=== PATIENT | male | born 1960 | race Caucasian/White ===

== ENCOUNTER 2018-05-28 11:44 | Emergency (ER) | payer OTHER ==
[2018-05-28] MEDS ORDERED: cefTRIAXone 1 GM in Sodium Chloride 0.9% 50 ML IV STA (13:33)
[2018-05-28] MEDS ORDERED: methylPREDNISolone Sodium Succinate 125 MG/2 ML SDV IVPUSH ONE (13:35)
[2018-05-28] MEDS ORDERED: Albuterol/Ipratropium 3.0-0.5 MG/3 ML Neb Soln NEB ONE (13:35)
--- NOTE | 2018-05-28 13:40 | EDM.PDOC ---
ED HPI GENERAL MEDICAL PROBLEM - General Chief Complaint: Respiratory Problem Stated Complaint: PNEUMONIA?? Time Seen by Provider: 05/28/18 13:07 Source of Information: Reports: Patient, Family, RN Notes Reviewed History Limitations: Reports: No Limitations - History of Present Illness INITIAL COMMENTS - FREE TEXT/NARRATIVE: 58-year-old gentleman presents to the emergency department today complaint of shortness of breath, he is known history of COPD with tobacco dependence, states over the last 24 hours he has gotten progressively more short of breath and is wheezing more gets short of breath with exertion. Does have a history of recurrent pneumonia is traveling from [place] - Related Data Allergies Allergy/AdvReac Type Severity Reaction Status Date / Time oxycodone Allergy Hives Verified 05/28/18 13:07 propoxyphene [From Darvon] Allergy Hives Verified 05/28/18 13:07 Home Meds: Home Meds Aspirin 1 tab PO DAILY 05/28/18 [History] Ipratropium/Albuterol Sulfate [Combivent Respimat 20-100 Mcg] 1 puff INH DAILY 05/28/18 [History] Loratadine 1 tab PO DAILY 05/28/18 [History] Naproxen 1 tab PO BID PRN 05/28/18 [History] Omeprazole 1 tab PO DAILY 05/28/18 [History] metFORMIN [Glucophage] 1,000 mg PO BID 05/28/18 [History] Past Medical History Respiratory History: Reports: Asthma, COPD, Pneumonia, Recurrent Musculoskeletal History: Reports: Fracture Endocrine/Metabolic History: Reports: Diabetes, Type II - Infectious Disease History Infectious Disease History: Reports: Chicken Pox - Past Surgical History HEENT Surgical History: Reports: Tonsillectomy Respiratory Surgical History: Reports: None GI Surgical History: Reports: Hernia, Inguinal Social & Family History - Tobacco Use Smoking Status *Q: Current Every Day Smoker Years of Tobacco use: 40 Packs/Tins Daily: 2 Used Tobacco, but Quit: No Second Hand Smoke Exposure: Yes - Caffeine Use Caffeine Use: Reports: Coffee, Soda - Recreational Drug Use Recreational Drug Use: No ED ROS GENERAL - Review of Systems Review Of Systems: See Below Constitutional: Denies: Fever, Chills HEENT: Reports: No Symptoms Respiratory: Reports: Shortness of Breath, Wheezing, Cough, Sputum Cardiovascular: Reports: Dyspnea on Exertion. Denies: Chest Pain GI/Abdominal: Reports: No Symptoms : Reports: No Symptoms Musculoskeletal: Reports: No Symptoms Skin: Reports: No Symptoms Neurological: Reports: No Symptoms ED EXAM, GENERAL - Physical Exam Exam: See Below Free Text/Narrative:: General: Male, visibly short of breath tripoding able speak in 2 word sentences , alert and oriented x3 HEENT: head is atraumatic normocephalic, eyes pupils equal round reactive to light, sclera clear no conjunctivitis appreciated. Ears tympanic membranes clear and hill landmarks and light reflex are present bilaterally canals are clear. Nose no septal deviation, nares are clear, no blood present. Mouth mucosa is moist and pink no erythema or exudate noted in soft palate, tongue is midline uvula is midline, dentition is intact. Neck: Supple no thyromegaly no tracheal deviation. Nodes: Cervical nodes subclavicular nodes nontender no palpable lymphadenopathy noted. Lungs: Distant breath sounds with expiratory wheeze throughout all lung balderas CV: Regular rate and rhythm S1 and S2 appreciated no murmurs rubs or gallops noted. Abdomen: Soft, obese, nontender, no palpable masses or organomegaly appreciated , no distention no guarding bowel sounds are present, . Neuro: Cranial nerves II through XII grossly intact Skin: Warm and dry, intact Extremities: No lower extremity edema appreciated, Course - Vital Signs Last Recorded V/S: Last Vital Signs Temp 97.3 F 05/28/18 13:33 Pulse 90 05/28/18 13:33 Resp 20 05/28/18 13:33 BP 140/98 H 05/28/18 13:33 Pulse Ox 96 05/28/18 13:33 - Orders/Labs/Meds Orders: Active Orders 24 hr Category Date Time Status EKG Documentation Completion [RC] ASDIRECTED Care 05/28/18 13:38 Active RT Aerosol Therapy [RC] ASDIRECTED Care 05/28/18 13:35 Active Vital Signs [RC] Q1H Care 05/28/18 13:33 Active Chest 2V [CR] Urgent Exams 05/28/18 13:33 Taken CULTURE BLOOD [BC] Urgent Lab 05/28/18 13:33 Ordered CULTURE BLOOD [BC] Urgent Lab 05/28/18 13:45 Received CULTURE RESPIRATORY + SMEAR [RM] Stat Lab 05/28/18 13:36 Ordered Azithromycin [Zithromax] 500 mg Med 05/28/18 14:15 Active Sodium Chloride 0.9% [Normal Saline] 250 ml IV Q24H Sodium Chloride 0.9% [Normal Saline] 1,000 ml Med 05/28/18 13:45 Active IV ASDIRECTED Blood Culture x2 Reflex Set [OM.PC] Urgent Oth 05/28/18 13:33 Ordered EKG 12 Lead [EK] Stat Ther 05/28/18 13:38 Ordered Medication Orders Sodium Chloride (Normal Saline) 1,000 mls @ 999 mls/hr IV ASDIRECTED MARCE Last Admin: 05/28/18 14:21 Dose: 999 mls/hr Azithromycin 500 mg/ Sodium (Chloride) 250 mls @ 250 mls/hr IV Q24H MARCE Last Admin: 05/28/18 14:12 Dose: 250 mls/hr Labs: Laboratory Tests 05/28/18 05/28/18 05/28/18 Range/Units 13:50 13:50 13:50 WBC 9.1 (4.5-11.0) K/uL RBC 5.56 (4.30-5.90) M/uL Hgb 15.6 H (12.0-15.0) g/dL Hct 48.1 (40.0-54.0) % MCV 87 (80-98) fL MCH 28 (27-31) pg MCHC 32 (32-36) % Plt Count 206 (150-400) K/uL Neut % (Auto) 78 H (36-66) % Lymph % (Auto) 11 L (24-44) % [place] % (Auto) 7 H (2-6) % Eos % (Auto) 5 H (2-4) % Baso % (Auto) 0 (0-1) % Sodium 138 L (140-148) mmol/L Potassium 4.7 (3.6-5.2) mmol/L Chloride 103 (100-108) mmol/L Carbon Dioxide 27 (21-32) mmol/L Anion Gap 12.7 (5.0-14.0) mmol/L BUN 10 (7-18) mg/dL Creatinine 0.9 (0.8-1.3) mg/dL Est Cr Clr Drug Dosing 98.64 mL/min Estimated GFR (MDRD) > 60 (>60) Glucose 116 H (74-106) mg/dL Lactic Acid 1.3 (0.4-2.0) mmol/L Calcium 9.0 (8.5-10.1) mg/dL Total Bilirubin 0.6 (0.2-1.0) mg/dL AST 19 (15-37) U/L ALT 28 (12-78) U/L Alkaline Phosphatase 89 (46-116) U/L Troponin I (0.000-0.056) ng/mL C-Reactive Protein 1.21 H (0.0-0.3) mg/dL NT-Pro-B Natriuret Pep (5-125) pg/mL Total Protein 6.7 (6.4-8.2) g/dL Albumin 3.4 (3.4-5.0) g/dL Globulin 3.3 (2.3-3.5) g/dL Albumin/Globulin Ratio 1.0 L (1.2-2.2) 05/28/18 05/28/18 Range/Units 13:50 13:50 WBC (4.5-11.0) K/uL RBC (4.30-5.90) M/uL Hgb (12.0-15.0) g/dL Hct (40.0-54.0) % MCV (80-98) fL MCH (27-31) pg MCHC (32-36) % Plt Count (150-400) K/uL Neut % (Auto) (36-66) % Lymph % (Auto) (24-44) % [place] % (Auto) (2-6) % Eos % (Auto) (2-4) % Baso % (Auto) (0-1) % Sodium (140-148) mmol/L Potassium (3.6-5.2) mmol/L Chloride (100-108) mmol/L Carbon Dioxide (21-32) mmol/L Anion Gap (5.0-14.0) mmol/L BUN (7-18) mg/dL Creatinine (0.8-1.3) mg/dL Est Cr Clr Drug Dosing mL/min Estimated GFR (MDRD) (>60) Glucose (74-106) mg/dL Lactic Acid (0.4-2.0) mmol/L Calcium (8.5-10.1) mg/dL Total Bilirubin (0.2-1.0) mg/dL AST (15-37) U/L ALT (12-78) U/L Alkaline Phosphatase (46-116) U/L Troponin I < 0.017 (0.000-0.056) ng/mL C-Reactive Protein (0.0-0.3) mg/dL NT-Pro-B Natriuret Pep 53 (5-125) pg/mL Total Protein (6.4-8.2) g/dL Albumin (3.4-5.0) g/dL Globulin (2.3-3.5) g/dL Albumin/Globulin Ratio (1.2-2.2) Meds: Medications Generic Name Dose Route Start Last Admin Trade Name Freq PRN Reason Stop Dose Admin Sodium Chloride 1,000 mls @ 999 mls/hr 05/28/18 13:45 05/28/18 14:21 Normal Saline IV 999 mls/hr ASDIRECTED MARCE Administration Azithromycin 500 mg/ Sodium 250 mls @ 250 mls/hr 05/28/18 14:15 05/28/18 14: 12 Chloride IV 250 mls/hr Q24H MARCE Administration Discontinued Medications Generic Name Dose Route Start Last Admin Trade Name Freq PRN Reason Stop Dose Admin Albuterol/Ipratropium 3 ml 05/28/18 13:35 05/28/18 13:49 Duoneb 3.0-0.5 Mg/3 Ml NEB 05/28/18 13:36 3 ml ONETIME ONE Administration Ceftriaxone Sodium 1 gm/ 50 mls @ 100 mls/hr 05/28/18 13:45 05/28/18 14:13 Sodium Chloride IV 05/28/18 14:14 100 mls/hr ONETIME ONE Administration Methylprednisolone Sodium Succinate 125 mg 05/28/18 13:35 05/28/18 14:12 Solu-Medrol IVPUSH 05/28/18 13:36 125 mg ONETIME ONE Administration Departure - Departure Time of Disposition: 15:00 Disposition: Home, Self-Care 01 Condition: Fair Clinical Impression: COPD exacerbation - Discharge Information Referrals: PCP,None [Primary Care Provider] - Forms: ED Department Discharge Additional Instructions: Take full course of antibiotics, take the full course of prednisone, use the Robitussin-AC as needed help suppress cough side effect maybe sleepiness, Please followup with your primary care provider in 3-5 days if not better, please call return to the emergency department with worsening of symptoms. - My Orders Last 24 Hours: My Active Orders 05/28/18 13:33 Vital Signs [RC] Q1H Chest 2V [CR] Urgent CULTURE BLOOD [BC] Urgent Blood Culture x2 Reflex Set [OM.PC] Urgent 05/28/18 13:35 RT Aerosol Therapy [RC] ASDIRECTED 05/28/18 13:36 CULTURE RESPIRATORY + SMEAR [RM] Stat 05/28/18 13:38 EKG Documentation Completion [RC] ASDIRECTED EKG 12 Lead [EK] Stat 05/28/18 13:45 CULTURE BLOOD [BC] Urgent Sodium Chloride 0.9% [Normal Saline] 1,000 ml IV ASDIRECTED 05/28/18 14:15 Azithromycin [Zithromax] 500 mg Sodium Chloride 0.9% [Normal Saline] 250 ml IV Q24H - Assessment/Plan Last 24 Hours: My Active Orders 05/28/18 13:33 Vital Signs [RC] Q1H Chest 2V [CR] Urgent CULTURE BLOOD [BC] Urgent Blood Culture x2 Reflex Set [OM.PC] Urgent 05/28/18 13:35 RT Aerosol Therapy [RC] ASDIRECTED 05/28/18 13:36 CULTURE RESPIRATORY + SMEAR [RM] Stat 05/28/18 13:38 EKG Documentation Completion [RC] ASDIRECTED EKG 12 Lead [EK] Stat 05/28/18 13:45 CULTURE BLOOD [BC] Urgent Sodium Chloride 0.9% [Normal Saline] 1,000 ml IV ASDIRECTED 05/28/18 14:15 Azithromycin [Zithromax] 500 mg Sodium Chloride 0.9% [Normal Saline] 250 ml IV Q24H Plan: Assessment Acuity = acute Site and laterality = COPD exacerbation complicated gentleman with history of tobacco abuse and dependence Etiology = probable underlying bacterial cause with tobacco dependence Manifestations = dyspnea, wheezing Location of injury = Home Lab values = CBC, CMP unremarkable, troponin negative, BNP at 53, EKG demonstrates a sinus rhythm, chest x-ray I did review films myself I cannot appreciate any acute process, the official read from radiology is pending Plan He had good improvement with the albuterol while in the ED because the initial presentation he was started on combination azithromycin and Rocephin 1 dose each. I did talk to about hospital admission however his curb 65 score is 0 he would like to try outpatient treatment first therefore will place him on a tapering dose of prednisone, doxycycline 100 mg by mouth twice a day 10 days, and Robitussin-AC 120 mL for the cough follow-up with his primary care upon return home This note was dictated using [employer] voice recognition software please call with any questions on syntax or grammar.
[2018-05-28] MEDS ORDERED: cefTRIAXone 1 GM in Sodium Chloride 0.9% 50 ML IV ONE (13:45)
[2018-05-28] MEDS ORDERED: Azithromycin 500 MG in Sodium Chloride 0.9% 250 ML IV SCH ×2 (13:45→14:15)
[2018-05-28] MEDS ORDERED: Sodium Chloride 0.9% 1,000 ML IV SCH (13:45)
--- NOTE | 2018-05-29 09:09 | CR ---
CHEST: 2 view CLINICAL HISTORY:Hypoxia COMPARISON:None FINDINGS: The lungs are generally hyperaerated. There is blunting of the costophrenic angles bilater ally. The there is moderate bilateral apical thickening left greater than right. There is also some l eft lateral pleural thickening. No infiltrates are seen. Heart size and pulmonary vascularity appear normal IMPRESSION: There is chronic pleural parenchymal scarring and pleural thickening. Small pleural effusions are not excluded Underlying COPD No infiltrates are seen
== END 2018-05-28 16:27 | disposition home or self-care (01) ==
LOC: JP.ED 11:44
DX: J44.1 Chronic obstructive pulmonary disease with (acute) exacerbation (principal); F17.210 Nicotine dependence, cigarettes, uncomplicated; E11.9 Type 2 diabetes mellitus without complications; Z79.82 Long term (current) use of aspirin; Z79.84 Long term (current) use of oral hypoglycemic drugs; Z79.899 Other long term (current) drug therapy; Z88.6 Allergy status to analgesic agent; Z88.8 Allergy status to other drugs, medicaments and biological substances
CPT/HCPCS: 36415; 71046; 80053; 83605; 83880; 84484; 85025; 86140; 87040; 87070; 87205; 93005; 94640; 96365; 96367; 96375; 99285; J0456; J0696; J2930; J7030; J7050; J7620